=== PATIENT | female | born 1945 | race Caucasian/White ===

== ENCOUNTER 2017-05-21 08:27 | Day surgery (SDC) | payer MEDICARE ==
[~2017-05-21] VITALS: Ht 154.9 cm; Wt 52.2 kg
[~2017-05-21 08:27] MED LIST: ADLT ASA LOW81 MG PO; ALLERGY RELIEF10 M1 PO; ALPRAZOLAM0.5 MG PO; AMLODIPINE10 MG OR; AMLODIPINE10 MG PO; AMLODIPINE5 MG PO; ASPIRIN EC81 MG PO; BAYER ASPIRIN E81 MG PO; COMBIVENT IN; DICYCLOMINE10 MG PO; FUROSEMIDE20 MG PO; HYDROCHLOROT25 MG OR; ISOSORB MONO10 MG OR; KETOROLAC0.5 % OD; LEVOTHYROXIN75 MC1 PO; LINZESS145 MCG PO; LISINOPRIL20 M1 PO; LISINOPRIL20 MG PO; LORATADINE10 M1 PO; LOTEMAX0.52 OD; LOVASTATIN40 MG OR; Levaquin PO; METOPROL TAR25 M1 PO; METOPROL TAR25 MG PO; METOPROLOL TART25 MG OR; MOBIC15 MG PO; MONTELUKAST SOD10 MG PO; NITROSTAT0.4 MG SL; OMEPRAZOLE20 MG PO; PATADAY OU; PRAVACHOL80 MG PO; PRAVASTATIN80 MG PO; PREDNISONE10 MG PO; PRILOSEC20 MG/CAP PO; PRILOSEC40 MG PO; PROAIR HFA IN; SPIRIVA IN; SYMBICORT1 AE1 IN; SYSTANE ULTRA OS; SYSTANE ULTRA OU; TRAMADOL HCL50 MG PO; TRAZODONE100 MG PO; TRAZODONE50 MG PO; ULTRAM50 M1 PO; VENTOLIN HFA IN; VITAMIN B-121000 MCG PO; ZESTRIL OR
[2017-05-21 11:43] VITALS: BP 96/50
== END 2017-05-21 12:44 | disposition home or self-care (01) ==
LOC: ENDO 08:27
PROVIDERS: ATTEND Surgery
PROC: 0DJD8ZZ Inspection of Lower Intestinal Tract, Via Natural or Artificial Opening Endoscopic (ICD-10-PCS; principal; 2017-05-21)
DX: R19.7 Diarrhea, unspecified (principal); K59.00 Constipation, unspecified; K57.30 Diverticulosis of large intestine without perforation or abscess without bleeding; I10 Essential (primary) hypertension; K21.9 Gastro-esophageal reflux disease without esophagitis

== ENCOUNTER 2018-07-27 16:33 | Emergency (ER) | payer MEDICARE ==
[~2018-07-27] VITALS: Ht 154.9 cm; Wt 50.0 kg
[2018-07-27] MEDS ORDERED: HYDROCO/APAP1 TA9 PO (18:57)
[2018-07-27 19:07] VITALS: BP 111/57
== END 2018-07-27 19:39 | disposition home or self-care (01) ==
LOC: ED 16:33
PROC: 0PSJXZZ Reposition Left Radius, External Approach (ICD-10-PCS; principal; 2018-07-27)
PROC: 2W3DX1Z Immobilization of Left Lower Arm using Splint (ICD-10-PCS; 2018-07-27)
DX: S52.502A Unspecified fracture of the lower end of left radius, initial encounter for closed fracture (principal); W11.XXXA Fall on and from ladder, initial encounter; Y93.H2 Activity, gardening and landscaping; Y92.007 Garden or yard of unspecified non-institutional (private) residence as the place of occurrence of the external cause

== ENCOUNTER 2018-08-10 08:59 | Day surgery (SDC) | payer MEDICARE ==
[~2018-08-10 08:59] MED LIST changes: +HYDROCO/APAP1 TA9 PO
[2018-08-10] MEDS ORDERED: PERCOCET 10/31 COMBO PO (14:09)
[2018-08-10 14:56] VITALS: BP 138/64
== END 2018-08-10 14:55 | disposition home or self-care (01) ==
LOC: ORM 08:59
PROVIDERS: ATTEND Orthopaedic Surgery
PROC: 0PSJ04Z Reposition Left Radius with Internal Fixation Device, Open Approach (ICD-10-PCS; principal; 2018-08-10)
DX: S52.532A Colles' fracture of left radius, initial encounter for closed fracture (principal); J44.9 Chronic obstructive pulmonary disease, unspecified; M19.90 Unspecified osteoarthritis, unspecified site; W11.XXXA Fall on and from ladder, initial encounter; Z86.73 Personal history of transient ischemic attack (TIA), and cerebral infarction without residual deficits; Z87.891 Personal history of nicotine dependence

== ENCOUNTER 2018-08-15 12:32 | Emergency (ER) | payer MEDICARE ==
[~2018-08-15] VITALS: Ht 154.9 cm; Wt 53.0 kg
[~2018-08-15 12:32] MED LIST changes: +PERCOCET 10/31 COMBO PO
[2018-08-15 14:37] LABS: HEMATOCRIT 40.4 % (37.0-47.0); IMMATURE GRANULOCYTES 0.3 % (0.0-5.0); MEAN CELL VOLUME 95.1 fL CALC (80.0-100.0); MEAN CORPUSCULAR HGB 30.6 pG CALC (26.0-32.0); MEAN CORPUSCULAR HGB CONC 32.2 g/L CALC (32.0-36.0); NEUT# 9.27 thou/uL (2.00-7.15); RED BLOOD COUNT 4.25 mill/uL (4.20-5.60); RED CELL DISTRI WIDTH 13.3 % (11.5-15.5)
[2018-08-15 14:51] LABS: ALBUMIN 4.1 g/dL (3.2-5.0); ALKALINE PHOSPHATASE 91 u/l (38-126); ANION GAP 15 (6-22 (CALC)); BILIRUBIN, TOTAL 0.5 mg/dL (0.0-1.4); BUN 11 mg/dL (8-23); BUN/CREATININE RATIO 16 (12-20 (CALC)); CARBON DIOXIDE 30 mmol/l (22-30); CHLORIDE 102 mmol/l (95-108); CREATININE 0.7 mg/dL (0.5-1.0); GFR > 60 ML/MIN (>=60 (CALC)); GFR FOR AFR.AMER. > 60 ML/MIN (>=60 (CALC)); SGOT/AST 36 u/l (9-36); SGPT/ALT 23 u/l (11-66); SODIUM 141 mmol/l (137-146); TOTAL PROTEIN 6.9 g/dL (6.3-8.2)
[2018-08-15 14:53] LABS: URINE BILIRUBIN - DIPSTICK NEGATIVE (NEGATIVE); URINE BLOOD DIPSTICK NEGATIVE (NEGATIVE); URINE COLOR YELLOW; URINE GLUCOSE - DIPSTICK NEGATIVE (NEGATIVE); URINE KETONE 15 mg/dL (NEGATIVE); URINE LEUK ESTERASE NEGATIVE (NEGATIVE); URINE NITRITE - DIPSTICK NEGATIVE (Negative); URINE PH 5.5 (4.5-8.0); URINE PROTEIN - DIPSTICK NEGATIVE (NEG-TRACE); URINE SPECIFIC GRAVITY <=1.005; URINE UROBILINOGEN - DIPSTICK 0.2 E.U./dL (0.2)
[2018-08-15 14:54] LABS: URINE CLARITY CLEAR
[2018-08-15] MEDS ORDERED: MIRALAX3350 N1 PO (15:50)
[2018-08-15] MEDS ORDERED: DULCOLAX10 MG RE (15:50)
[2018-08-15 16:14] VITALS: BP 153/68
== END 2018-08-15 16:14 | disposition home or self-care (01) ==
LOC: ED 12:32
PROVIDERS: Emergency Medicine
DX: K59.00 Constipation, unspecified (principal); J44.9 Chronic obstructive pulmonary disease, unspecified; K58.9 Irritable bowel syndrome, unspecified; I10 Essential (primary) hypertension; I25.10 Atherosclerotic heart disease of native coronary artery without angina pectoris; Z86.73 Personal history of transient ischemic attack (TIA), and cerebral infarction without residual deficits

== ENCOUNTER 2019-05-27 19:58 | Emergency (ER) | payer MEDICARE ==
[~2019-05-27] VITALS: Ht 154.9 cm; Wt 52.7 kg
[~2019-05-27 19:58] MED LIST changes: +DULCOLAX10 MG RE; +MIRALAX3350 N1 PO
[2019-05-27] MEDS ORDERED: ULTRAM50 M1 PO (20:26)
[2019-05-27 20:47] LABS: HEMATOCRIT 46.7 % (37.0-47.0); HEMOGLOBIN 15.5 g/dl (12.0-16.0); IMMATURE GRANULOCYTES 0.3 % (0.0-5.0); MEAN CELL VOLUME 89.8 fL CALC (80.0-100.0); MEAN CORPUSCULAR HGB 29.8 pG CALC (26.0-32.0); MEAN CORPUSCULAR HGB CONC 33.2 g/L CALC (32.0-36.0); NEUT# 4.03 thou/uL (2.00-7.15); RED BLOOD COUNT 5.2 mill/uL (4.20-5.60); RED CELL DISTRI WIDTH 12.8 % (11.5-15.5)
[2019-05-27 20:59] LABS: ALKALINE PHOSPHATASE 92 u/l (38-126); BILIRUBIN, TOTAL 0.4 mg/dL (0.0-1.4); BUN 7 mg/dL (8-23); BUN/CREATININE RATIO 10 (12-20 (CALC)); CHLORIDE 105 mmol/l (95-108); CREATININE 0.7 mg/dL (0.5-1.0); GFR > 60 ML/MIN (>=60 (CALC)); GFR FOR AFR.AMER. > 60 ML/MIN (>=60 (CALC)); POTASSIUM 4.5 mmol/l (3.5-5.1); SGOT/AST 28 u/l (9-36); SODIUM 143 mmol/l (137-146)
[2019-05-27 21:02] LABS: ALBUMIN 5.2 g/dL (3.2-5.0); ANION GAP 20 (6-22 (CALC)); CARBON DIOXIDE 23 mmol/l (22-30); TOTAL PROTEIN 8.2 g/dL (6.3-8.2)
[2019-05-27 21:12] LABS: MYOGLOBIN 29 ng/mL (0 - 62)
[2019-05-28 01:05] VITALS: BP 118/62
== END 2019-05-28 01:05 | disposition home or self-care (01) ==
LOC: ED 19:58
PROVIDERS: Emergency Medicine
DX: R07.89 Other chest pain (principal); I10 Essential (primary) hypertension; F41.9 Anxiety disorder, unspecified
CPT/HCPCS: J2060

== ENCOUNTER → 2022-04-22 | Emergency (ER) | payer MEDICARE, MEDICAID ==
[~2022-04-22] MED LIST changes: +ALPRAZOLAM1 MG PO; +CYANOCOBAL1000 MCG/M IM; +CYMBALTA30 MG PO; +HYDROCO/APAP1 T10 PO; +STIOLTO RESPIMA1 AER IN
== END | disposition home or self-care (01) ==
LOC: ED 16:25 → LWOBS 17:04
DX: Z53.21 Procedure and treatment not carried out due to patient leaving prior to being seen by health care provider (principal)

== ENCOUNTER 2022-08-15 14:13 | Emergency (ER) | payer MEDICARE ==
[~2022-08-15] VITALS: Ht 154.9 cm; Wt 45.5 kg
[2022-08-15 14:18] VITALS: BP 175/80
[2022-08-15 14:30] VITALS: BP 125/74
[2022-08-15 15:00] VITALS: BP 154/131
[2022-08-15] MEDS ORDERED: PAXLOVID PO (15:04)
[2022-08-15] MEDS ORDERED: ZPAK PO (15:04)
[2022-08-15 15:30] VITALS: BP 173/156
== END 2022-08-15 15:50 | disposition home or self-care (01) ==
LOC: ED 14:13
DX: U07.1 COVID-19 (principal); R05.9 Cough, unspecified; R50.9 Fever, unspecified; J44.9 Chronic obstructive pulmonary disease, unspecified; I10 Essential (primary) hypertension; Z86.73 Personal history of transient ischemic attack (TIA), and cerebral infarction without residual deficits

== ENCOUNTER 2024-02-02 12:47 | Emergency (ER) | payer MEDICARE ==
[~2024-02-02] VITALS: Ht 154.9 cm; Wt 49.3 kg
[2024-02-02] VITALS (20 sets, daily range): BP systolic 108–178; BP diastolic 52–150
[~2024-02-02 12:47] MED LIST changes: +PAXLOVID PO; +ZPAK PO
[2024-02-02] MEDS ORDERED: KETOROLAC TROMETHAMINE 30 MG/ML SDV IV ONE (13:10)
[2024-02-02] MEDS ORDERED: ONDANSETRON HCl 4 MG/2 ML SDV IV ONE (13:10)
[2024-02-02 13:29] LABS: BASO% 0.5 % (0-3); EOS% 2.5 % (0-8); HEMATOCRIT 47.1 % (37.0-47.0); HEMOGLOBIN 15.4 g/dl (12.0-16.0); IMMATURE GRANULOCYTES 0.2 % (0.0-5.0); LYMPH% 25.1 % (15-41); MEAN CELL VOLUME 93.8 fL CALC (80.0-100.0); MEAN CORPUSCULAR HGB 30.7 pG CALC (26.0-32.0); MEAN CORPUSCULAR HGB CONC 32.7 g/dL CAL (32.0-36.0); MONO% 8.6 % (2-13); NEUT# 3.8 thou/uL (2.00-7.15); NEUT% 63.1 % (42-76); RED BLOOD COUNT 5.02 mill/uL (4.20-5.60); RED CELL DISTRI WIDTH 12.3 % (11.5-15.5)
[2024-02-02 13:48] LABS: ALBUMIN 4.7 g/dL (3.2-5.0); ALKALINE PHOSPHATASE 85 u/l (38-126); ANION GAP 12 (6-22 (CALC)); BILIRUBIN, TOTAL 0.5 mg/dL (0.02-1.3); BUN 8 mg/dL (8-23); BUN/CREATININE RATIO 10 (12-20 (CALC)); CARBON DIOXIDE 30 mmol/l (22-30); CHLORIDE 104 mmol/l (95-108); CREATININE 0.8 mg/dL (0.5-1.0); GFR FOR AFR.AMER. > 60 ML/MIN (>=60 (CALC)); GFR OTHER RACES > 60 ML/MIN (>=60 (CALC)); POTASSIUM 4.2 mmol/l (3.5-5.1); SGOT/AST 40 u/l (9-36); SODIUM 142 mmol/l (137-146)
[2024-02-02 13:49] LABS: TOTAL PROTEIN 8.4 g/dL (6.3-8.2)
[2024-02-02] MEDS ORDERED: MIDAZOLAM HCL 2 MG/2 ML VIAL IV ONE (14:45)
[2024-02-02 16:06] LABS: URINE BILIRUBIN - DIPSTICK Negative (NEGATIVE); URINE BLOOD DIPSTICK Negative (NEGATIVE); URINE GLUCOSE - DIPSTICK Negative (NEGATIVE); URINE KETONE Negative (NEGATIVE); URINE LEUK ESTERASE Negative (NEGATIVE); URINE NITRITE - DIPSTICK Negative (Negative); URINE PH 7.5 (4.5-8.0); URINE PROTEIN - DIPSTICK Negative (NEG-TRACE); URINE UROBILINOGEN - DIPSTICK 0.2 E.U./dL (0.2)
[2024-02-02 16:11] LABS: URINE COLOR Yellow
[2024-02-02] MEDS ORDERED: AMOX/K CLAV875 M1 PO (17:49)
[2024-02-02] MEDS ORDERED: METRONIDAZOLE500 MG PO (17:49)
[2024-02-02] MEDS ORDERED: ONDANSETRON4 MG PO (17:50)
== END 2024-02-02 18:25 | disposition home or self-care (01) ==
LOC: ED 12:47
PROVIDERS: Family Medicine; Nurse Practitioner Acute Care
DX: K57.30 Diverticulosis of large intestine without perforation or abscess without bleeding (principal); I10 Essential (primary) hypertension; E03.9 Hypothyroidism, unspecified; Z86.73 Personal history of transient ischemic attack (TIA), and cerebral infarction without residual deficits; Z79.82 Long term (current) use of aspirin; J44.9 Chronic obstructive pulmonary disease, unspecified; Z20.822 Contact with and (suspected) exposure to COVID-19
CPT/HCPCS: Q9967